=== PATIENT | male | born 1980 | race Asian ===

== ENCOUNTER 2018-06-29 09:23 | Day surgery (SDC) | payer BC ==
[~2018-06-29] VITALS: Ht 177.8 cm; Wt 145.0 kg
[~2018-06-29 09:23] MED LIST: ASPI81CH PO; ATOR40TA PO; BIOTIN PO; CHOL10002 PO; CLON.1 PO; FISH1000 PO; FURO40 PO; FURO80 PO; GLIP5 PO; GLYB5 PO; HYDR1TAB94 PO; Humalog100 UNIT/1 SC; INSLI100I SC; INSULANPEN; INSULANPEN SC; LISHYD2025 PO; LISI20; LISI20 PO; LISINOPRIL PO; LOSARTAN-HCTZ1 EAC2 PO; METF500 PO; METO2.5 PO; PRAV20 PO; SIMV40 PO; SODBIC650; SODBIC650 PO
--- NOTE | 2018-06-29 11:02 | NUR ---
PT VERBALIZES UNDERSTANDING WRITTEN AND VERBAL ORDERS. PT IV DC'D.CATH INTACT. PRESSURE DSG IN PLACE. R CHEST WALL REMAINS STABLE. PT DC TO HOME VIA WC BY FAMILY MEMBER.
== END 2018-06-29 11:05 | disposition home or self-care (01) ==
LOC: MHTC 09:23
DX: I12.0 Hypertensive chronic kidney disease with stage 5 chronic kidney disease or end stage renal disease (principal); E11.22 Type 2 diabetes mellitus with diabetic chronic kidney disease; N18.6 End stage renal disease; D63.1 Anemia in chronic kidney disease; E03.9 Hypothyroidism, unspecified; E87.5 Hyperkalemia; E55.9 Vitamin D deficiency, unspecified; Z79.82 Long term (current) use of aspirin; Z79.899 Other long term (current) drug therapy; Z79.84 Long term (current) use of oral hypoglycemic drugs
CPT/HCPCS: 99152; 99153; C1750; C1769; J1644; J2250; J3010; J7030